=== PATIENT | female | born 1960 | race Caucasian/White ===

== ENCOUNTER 2018-09-08 18:16 | Outpatient (REF) | payer OTHER, SELFPAY ==
[2018-09-08 22:10] LABS: COMMENT (LAB VIEW ONLY) 33.55 mg/dL
[2018-09-08 22:10] LABS: ALT 33 U/L (12-78); AST 22 U/L (15-37); Albumin 4.2 g/dL (3.4-5.0); Alkaline Phosphatase 47 U/L (46-116); Anion Gap 7.5 mmol/L (3-11); BUN 13 mg/dL (7-18); Bilirubin, Total 1.2 mg/dL (0.2-1.0); CO2 30.5 mmol/L (21.0-32.0); CREATININE 0.77 mg/dL (0.55-1.02); Calcium 8.6 mg/dL (8.5-10.1); Chloride 105 mmol/L (98-107); Cholesterol 195 mg/dL (50-200); Glucose 100 mg/dL (70-100); HDL Cholesterol 50 mg/dL (40-60); LDL CHOLESTEROL 126 mg/dL (<100); Potassium 3.6 mmol/L (3.5-5.1); Sodium 143 mmol/L (136-145); TSH (W/Ref FT4) 2.09 uIU/mL (0.358-3.74); Triglyceride 66 mg/dL (30-150)
== END 2018-09-08 18:36 ==
LOC: NCHCN 18:16
PROVIDERS: PCP Family Medicine; Visit Provider Family Medicine
DX: Z00.00 Encounter for general adult medical examination without abnormal findings (principal); E11.9 Type 2 diabetes mellitus without complications; I10 Essential (primary) hypertension; E66.3 Overweight
CPT/HCPCS: 80053; 80061; 83721; 82043; 82570; 84443

== ENCOUNTER 2019-11-10 08:52 | Outpatient (REF) | payer OTHER, SELFPAY ==
[2019-11-10 20:14] LABS: BUN 14 mg/dL (7-18); CREATININE 0.87 mg/dL (0.55-1.02); Calcium 8.6 mg/dL (8.5-10.1); Calculated LDL 123 mg/dL (<100); Chloride 103 mmol/L (98-107); Cholesterol 191 mg/dL (<200); Glucose 186 mg/dL (74-106); HDL Cholesterol 46 mg/dL (40-60); Potassium 4.1 mmol/L (3.5-5.1); Sodium 140 mmol/L (136-145); Triglyceride 110 mg/dL (<150)
== END 2019-11-10 09:12 ==
LOC: NCHCN 08:52
PROVIDERS: PCP Family Medicine; Visit Provider Family Medicine
DX: I10 Essential (primary) hypertension (principal); E11.9 Type 2 diabetes mellitus without complications
CPT/HCPCS: 80048; 80061; 83036

== ENCOUNTER 2020-02-14 07:59 | Outpatient (REF) | payer OTHER, SELFPAY ==
[2020-02-14 19:59] LABS: ALT 61 U/L (14-59); AST 36 U/L (15-37); Albumin 4.4 g/dL (3.4-5.0); Alkaline Phosphatase 79 U/L (46-116); BUN 11 mg/dL (7-18); Bilirubin, Total 1.2 mg/dL (0.2-1.0); Calcium 9.1 mg/dL (8.5-10.1); Calculated LDL 54 mg/dL (<100); Chloride 104 mmol/L (98-107); Cholesterol 115 mg/dL (<200); Glucose 154 mg/dL (74-106); HDL Cholesterol 48 mg/dL (40-60); Potassium 4.1 mmol/L (3.5-5.1); Sodium 142 mmol/L (136-145); Total Protein 7.8 g/dL (6.4-8.2); Triglyceride 68 mg/dL (<150)
[2020-02-14 20:03] LABS: Hemoglobin A1C 7.1 % (3.8-5.6)
== END 2020-02-14 08:19 ==
LOC: NCHCN 07:59
PROVIDERS: PCP Family Medicine; Visit Provider Family Medicine
DX: E11.9 Type 2 diabetes mellitus without complications (principal); I10 Essential (primary) hypertension
CPT/HCPCS: 80053; 80061; 83036

== ENCOUNTER 2020-03-21 22:39 | Outpatient (REF) | payer OTHER, SELFPAY ==
[2020-03-21 21:58] LABS: COMMENT (LAB VIEW ONLY) 34.09 mg/dL; Microalb ug/mg Crea 3.8 ug/mg Cr
== END 2020-03-21 22:59 ==
LOC: NCHCN 22:39
PROVIDERS: PCP Family Medicine; Visit Provider Family Medicine
DX: E11.9 Type 2 diabetes mellitus without complications (principal); I10 Essential (primary) hypertension; E66.3 Overweight
CPT/HCPCS: 82043; 82570

== ENCOUNTER 2020-10-10 16:04 | Outpatient (REF) | payer OTHER, SELFPAY ==
--- NOTE | 2020-10-10 15:30 | PAPFT_PTH ---
[facility]: [id number] AGE/SX: 60/F ROOM: RE10/10/[address]: Radha Brock : 1960 BED: DIS: 10/10/2020 SPEC #: [id number] RECD: 10/11/20 12:52 STATUS: [place] REGian #: [id number] JENNIFER: 10/10/20 15:[address]: Radha Brock DEPT: [facility] Cytology RECD BY: Dena Gagnon Tissues: 1 - CX/ENDOCX FOR PAP SMEARS Procedures: PAP THIN PREP/[facility] Screening HPV DNA PROBE Comments: [id number]
== END 2020-10-10 16:05 | disposition home or self-care (01) ==
LOC: NCHCN 16:04
PROVIDERS: PCP Family Medicine; Visit Provider Family Medicine
DX: Z12.4 Encounter for screening for malignant neoplasm of cervix (principal); Z11.51 Encounter for screening for human papillomavirus (HPV); Z00.00 Encounter for general adult medical examination without abnormal findings
CPT/HCPCS: 88142; 87624

== ENCOUNTER 2021-01-02 07:54 | Outpatient (REF) | payer OTHER, SELFPAY ==
[2021-01-02 13:45] LABS: Hemoglobin A1C 6.9 % (<5.7)
[2021-01-02 14:02] LABS: ALT 33 U/L (14-59); AST 16 U/L (15-37); Alkaline Phosphatase 43 U/L (46-116); Anion Gap 8.9 mmol/L (3-11); BUN 12 mg/dL (7-18); Bilirubin, Total 1.5 mg/dL (0.2-1.0); CO2 29.1 mmol/L (21.0-32.0); CREATININE 0.7 mg/dL (0.55-1.02); Calcium 8.6 mg/dL (8.5-10.1); Calculated LDL 35 mg/dL (<100); Chloride 106 mmol/L (98-107); Cholesterol 94 mg/dL (<200); Glucose 148 mg/dL (74-106); HDL Cholesterol 49 mg/dL (40-60); Potassium 4.2 mmol/L (3.5-5.1); Sodium 144 mmol/L (136-145); Total Protein 7.4 g/dL (6.4-8.2); Triglyceride 51 mg/dL (<150)
== END 2021-01-02 07:55 | disposition home or self-care (01) ==
LOC: NCHCN 07:54
PROVIDERS: PCP Family Medicine; Visit Provider Family Medicine
DX: Z00.00 Encounter for general adult medical examination without abnormal findings (principal); E11.65 Type 2 diabetes mellitus with hyperglycemia; I10 Essential (primary) hypertension
CPT/HCPCS: 80053; 80061; 83036

== ENCOUNTER 2021-10-12 16:17 | Outpatient (REF) | payer OTHER, SELFPAY ==
[2021-10-12 15:16] LABS: COMMENT (LAB VIEW ONLY) 36.26 mg/dL; Microalb ug/mg Crea 17.7 ug/mg Cr
--- OUTSIDE RECORDS SUMMARY | 2021-10-12 16:20 | XMS_ITS | CCD ---
:1960 Author Care Team Providers Name [facility] Phone [facility] Attending Physician Unavailable Vital Signs Unknown or Not Available. Allergies Allergy Code Allergy Type Reaction Status No Known Drug Allergies 0 No known drug allergies Active Procedures Unknown or Not Available. History of Immunizations Unknown or Not Available. Problems Unknown or Not Available. Results C REACTIVE PROTEIN HIGH SENSITIVITY* - C ollect Date/Time: 08/23/2021 07:40 Test Name Code Test Result Test Units Test Ref Range CRP-HIGH SENS. 44917-4 3.02 mg/L L=0.00 H= 3.00 CRP-HIGH SENS 78392-9 0.30 mg/dL L=0.00 H=0 .30 HEPATIC FUNCTION PANEL - Collect Date/Ti me: 08/23/2021 07:40 Test Name Code Test Result Test Units Test Ref Range ALBUMIN 1751-7 4.3 gm/dL L=3.4 H=5. 0 TOTAL PROTEIN 2885-2 7.9 gm/dL L=6.0 H=8 .0 BILIRUBIN TOTAL 1975-2 1.6 mg/dL L=0.0 H =1.3 BILIRUBIN DIRECT 1971-1 0.30 mg/dL L=0.00 H=0.50 SGOT (AST) 1920-8 18 U/L L=15 H=37 SGPT (ALT) 1742-6 31 U/L L=12 H=78 ALK. PHOS. 6768-6 43 U/L L=46 H=11 6 CBC W/ DIFFERENTIAL* - Collect Date/Time : 08/23/2021 07:40 Test Name Code Test Result Test Units Test Ref Range WBC 6690-2 4.46 th/cmm L=5.00 H=10.00 NEUT % 38.6 % L=40.0 H=80.0 LYMPH % 46.0 % L=10.0 H=50.0 MONO % 30457-9 7.6 % L=2.0 H=12.0 EOS % 6.7 % L=0.0 H=8. 0 BASO % 0.9 % L=0.0 H=3. 0 IG % 2514-8 0.2 % L=0.0 H=1. 1 NRBC % 68846-6 0.0 % L=0.0 H=0. 0 NEUT abs count 751-8 1.7 th/cmm L=1.6 H= 8.4 LYMPH abs count 731-0 2.1 th/cmm L=1.5 H =4.0 MONO abs count 742-7 0.3 th/cmm L=0.2 H= 1.0 EOS abs count 711-2 0.3 th/cmm L=0.0 H=0 .5 BASO abs count 704-7 0.0 th/cmm L=0.0 H= 0.2 IG abs count 95589-6 0.0 th/cmm L=0.0 H=0. 1 NRBC abs count 51412-6 0.0 mil/cmm L=0.0 H= 0.0 RBC 789-8 5.03 mil/cmm L=3.90 H=5.40 HEMOGLOBIN 718-7 12.1 gm/dL L=12.0 H=16.0 HEMATOCRIT 4544-3 39 % L=37 H=47 MCV 787-2 77 fL L=82 H=92 MCH 785-6 24.1 pg L=27.0 H=31.0 MCHC 786-4 31.2 % L=32.0 H=36.0 RDW-SD 788-0 41.3 fL L=39.0 H=49.0 PLATELET COUNT 777-3 279 th/cmm L=150 H= 450 SED RATE* - Collect Date/Time: 07:40 Test Name Code Test Result Test Units Test Ref Range SED. RATE 4537-7 7 mm/hr L=0 H=30 MARGIE ANTI NUCLEAR ANTIBODIES - Collect Da te/Time: 08/23/2021 07:40 Test Name Code Test Result Test Units Test Ref Range MARGIE Interpretation Negative N/A Negative Active Medications Unknown or Not Available. Medications Administered During Visit Unknown or Not Available. Encounters Encounter Diagnosis Diagnosis Code Start Date Angioedema [id number] 08/23/2021 Social History Smoking Status Code Start Date End Date Former smoker [id number] Patient Decision Aids Unknown or Not Available. Discharge Instructions You were admitted to [facility] on 08/23/2021 07:31 with a principal diagnosis of Angioneurotic edema, initia l encounter You had the following tests done: MARGIE ANTI NUCLEAR ANTIBODIES C REACTIVE PROTEIN HIGH SENSITIVITY* CBC W/ DIFFERENTIAL* HEPATIC FUNCTION PANEL SED RATE* You were discharged from [facility] on 08/23/2021 07:31 Should you have any questions prior to d ischarge, please contact a member of your healthcare team. If you have left the ho spital and have any questions, please contact your primary care physician. Chief Complaint and Reason For Visit Unknown or Not Available. Function Status Unknown or Not Available. Plan of Care Unknown or Not Available. Referral/Transition of Care Unknown or Not Available.
== END 2021-10-12 16:18 | disposition home or self-care (01) ==
LOC: NCHCN 16:17
PROVIDERS: PCP Family Medicine; Visit Provider Family Medicine
DX: E11.9 Type 2 diabetes mellitus without complications (principal)
CPT/HCPCS: 82043; 82570

== ENCOUNTER 2022-03-12 17:59 | Outpatient (REF) | payer OTHER, SELFPAY ==
[2022-03-12 16:08] LABS: Hemoglobin A1C 7.1 % (<5.7)
[2022-03-12 16:09] LABS: ALT 26 U/L (14-59); AST 26 U/L (15-37); Albumin 4.2 g/dL (3.4-5.0); Alkaline Phosphatase 34 U/L (46-116); Anion Gap 7.2 mmol/L (3-11); BUN 8 mg/dL (7-18); Bilirubin, Total 1.6 mg/dL (0.2-1.0); CO2 28.8 mmol/L (21.0-32.0); CREATININE 0.7 mg/dL (0.55-1.02); Calcium 8.8 mg/dL (8.5-10.1); Calculated LDL 51 mg/dL (<100); Chloride 105 mmol/L (98-107); Cholesterol 115 mg/dL (<200); Glucose 109 mg/dL (74-106); HDL Cholesterol 53 mg/dL (40-60); Potassium 4.1 mmol/L (3.5-5.1); Sodium 141 mmol/L (136-145); Total Protein 7.7 g/dL (6.4-8.2); Triglyceride 58 mg/dL (<150)
== END 2022-03-12 18:00 | disposition home or self-care (01) ==
LOC: NCHCN 17:59
PROVIDERS: PCP Family Medicine; Visit Provider Family Medicine
DX: E11.9 Type 2 diabetes mellitus without complications (principal); I10 Essential (primary) hypertension; Z00.00 Encounter for general adult medical examination without abnormal findings; Z13.220 Encounter for screening for lipoid disorders
CPT/HCPCS: 80053; 80061; 83036

== ENCOUNTER 2022-09-10 15:55 | Outpatient (REF) | payer OTHER, SELFPAY ==
[2022-09-10 15:54] LABS: Microalb ug/mg Crea 5.5 ug/mg Cr
== END 2022-09-10 15:56 | disposition home or self-care (01) ==
LOC: NCHCN 15:55
PROVIDERS: PCP Family Medicine; Visit Provider Family Medicine
DX: Z00.00 Encounter for general adult medical examination without abnormal findings (principal); E11.9 Type 2 diabetes mellitus without complications; I10 Essential (primary) hypertension
CPT/HCPCS: 82043; 82570

== ENCOUNTER 2023-04-01 18:20 | Outpatient (REF) | payer OTHER, SELFPAY ==
[2023-04-01 22:25] LABS: ALT 28 U/L (14-59); AST 20 U/L (15-37); Alkaline Phosphatase 38 U/L (46-116); Anion Gap 9.2 mmol/L (3-11); BUN 13 mg/dL (7-18); Bilirubin, Total 1.1 mg/dL (0.2-1.0); CO2 25.8 mmol/L (21.0-32.0); CREATININE 0.8 mg/dL (0.55-1.02); Calcium 8.8 mg/dL (8.5-10.1); Calculated LDL 41 mg/dL (<100); Chloride 105 mmol/L (98-107); Cholesterol 106 mg/dL (<200); Estimated GFR 83.26 (mL/min/1.73m2); Glucose 169 mg/dL (74-106); HDL Cholesterol 53 mg/dL (40-60); Potassium 3.8 mmol/L (3.5-5.1); Sodium 140 mmol/L (136-145); Total Protein 7.5 g/dL (6.4-8.2); Triglyceride 61 mg/dL (<150)
[2023-04-01 22:28] LABS: Hemoglobin A1C 7.2 % (<5.7)
== END 2023-04-01 18:21 | disposition home or self-care (01) ==
LOC: NCHCN 18:20
PROVIDERS: PCP Family Medicine; Visit Provider Family Medicine
DX: Z00.00 Encounter for general adult medical examination without abnormal findings (principal); E11.9 Type 2 diabetes mellitus without complications; I10 Essential (primary) hypertension
CPT/HCPCS: 80053; 80061; 83036

== ENCOUNTER 2024-05-04 15:06 | Outpatient (REF) | payer OTHER, SELFPAY ==
[2024-05-04 15:35] LABS: ALT 26 U/L (14-59); AST 23 U/L (15-37); Alkaline Phosphatase 44 U/L (46-116); Anion Gap 9.1 mmol/L (3-11); BUN 13 mg/dL (7-18); Bilirubin, Total 1.45 mg/dL (0.2-1.0); CO2 26.9 mmol/L (21.0-32.0); CREATININE 0.8 mg/dL (0.55-1.02); Calcium 8.6 mg/dL (8.5-10.1); Calculated LDL 52 mg/dL (<100); Chloride 105 mmol/L (98-107); Cholesterol 116 mg/dL (<200); Estimated GFR 82.74 (mL/min/1.73m2); Glucose 138 mg/dL (74-106); HDL Cholesterol 53 mg/dL (40-60); Potassium 4.3 mmol/L (3.5-5.1); Sodium 141 mmol/L (136-145); Total Protein 7.7 g/dL (6.4-8.2); Triglyceride 55 mg/dL (<150)
[2024-05-04 17:27] LABS: COMMENT (LAB VIEW ONLY) 146.11 mg/dL; Microalb ug/mg Crea 8.3 ug/mg Cr
== END 2024-05-04 15:07 | disposition home or self-care (01) ==
LOC: NCHCN 15:06
PROVIDERS: PCP Family Medicine; Visit Provider Family Medicine
DX: E11.9 Type 2 diabetes mellitus without complications (principal)
CPT/HCPCS: 80053; 80061; 82043; 82570

== ENCOUNTER 2025-05-06 19:12 | Outpatient (REF) | payer OTHER, SELFPAY ==
[2025-05-06 17:11] LABS: ALT 29 U/L (14-59); AST 23 U/L (15-37); Albumin 4.6 g/dL (3.4-5.0); Alkaline Phosphatase 42 U/L (46-116); Anion Gap 10.8 mmol/L (3-11); BUN 11 mg/dL (7-18); Bilirubin, Total 1.4 mg/dL (0.2-1.0); CO2 28.2 mmol/L (21.0-32.0); Calcium 8.9 mg/dL (8.5-10.1); Calculated LDL 59 mg/dL (<100); Chloride 103 mmol/L (98-107); Cholesterol 130 mg/dL (<200); Estimated GFR 100.17 (mL/min/1.73m2); Glucose 119 mg/dL (74-106); HDL Cholesterol 60 mg/dL (>or=50); Potassium 4.1 mmol/L (3.5-5.1); Sodium 142 mmol/L (136-145); Total Protein 8.5 g/dL (6.4-8.2); Triglyceride 59 mg/dL (<150)
[2025-05-06 17:52] LABS: Hemoglobin A1C 6.7 % (<5.7)
[2025-05-06 20:03] LABS: COMMENT (LAB VIEW ONLY) 60.64 mg/dL; Microalb ug/mg Crea 11.4 ug/mg Cr
== END 2025-05-06 19:13 | disposition home or self-care (01) ==
LOC: NCHCN 19:12
PROVIDERS: PCP Family Medicine; Visit Provider Family Medicine
DX: Z00.00 Encounter for general adult medical examination without abnormal findings (principal); E11.9 Type 2 diabetes mellitus without complications; I10 Essential (primary) hypertension
CPT/HCPCS: 80053; 80061; 82043; 82570; 83036